=== PATIENT | female | born 1975 ===

== ENCOUNTER 2022-01-27 13:17 | Outpatient (CLI) | payer OTHER | END 2022-01-27 13:30 | disposition home or self-care (01) | LOC: MAMO-SONO 13:17 | PROVIDERS: ATTEND Obstetrics & Gynecology | DX: N63.10 Unspecified lump in the right breast, unspecified quadrant (principal); N63.20 Unspecified lump in the left breast, unspecified quadrant; R19.00 Intra-abdominal and pelvic swelling, mass and lump, unspecified site ==